=== PATIENT | female | born 1990 | race Caucasian/White ===

== ENCOUNTER → 2017-11-29 | Outpatient (CLI) | payer BC ==
[2017-11-29 20:28] LABS: EOS % 0.5 % (0.0-3.0); HEMATOCRIT 36.7 % (36.0-47.0); HEMOGLOBIN 12.1 g/dl (12.0-15.5); IMMATURE GRANULOCYTE % 0.3 % (0-3.0); LYMPH # 1.5 10^3/uL (1.5-6.5); LYMPH % 25.2 % (24.0-44.0); MEAN CORPUSCULAR HEMOGLOBIN 30.8 pg (27.0-33.0); MEAN CORPUSCULAR VOLUME 93.4 fl (80.0-96.0); MONO # 0.3 10^3/uL (0.0-0.8); MONO % 4.5 % (0.0-5.0); NEUTROPHILS # 4.1 10^3/uL (1.8-7.7); NEUTROPHILS % 69.5 % (36.0-66.0); PLATELET COUNT, AUTOMATED 157 10^3/uL (150-450); RED BLOOD COUNT 3.93 10^6/uL (4.00-5.40); RED CELL DISTRIBUTION WIDTH 11.9 % (11.5-14.5); WHITE BLOOD COUNT 5.8 10^3/uL (4.0-10.0)
[2017-11-29 22:55] LABS: CHLAMYDIA DNA AMPLIFICATION NEGATIVE (NEGATIVE); GC DNA AMPLIFICATION NEGATIVE (NEGATIVE)
[2017-12-01 11:12] LABS: RUBELLA IgG QUALITATIVE IMMUNE (IMMUNE)
[2017-12-01 11:33] LABS: HBsAg Prenatal NEGATIVE (NEGATIVE)
[2017-12-01 11:41] LABS: HEPATITIS C VIRUS ABY INDEX 0.1 INDEX (<0.8)
[2017-12-01 11:42] LABS: HIV 1&2 SCREEN CENTAUR NEGATIVE (NEGATIVE)
== END ==
LOC: M WUC 17:35
DX: Z34.81 Encounter for supervision of other normal pregnancy, first trimester (principal); Z3A.12 12 weeks gestation of pregnancy; Z36.89 Encounter for other specified antenatal screening
CPT/HCPCS: 86762

== ENCOUNTER → 2017-12-08 | Outpatient (CLI) | payer BC | LOC: M RAD 15:06 | DX: M51.26 Other intervertebral disc displacement, lumbar region (principal) | CPT/HCPCS: 72148 ==

== ENCOUNTER → 2018-09-14 | Outpatient (REF) | payer BC ==
[2018-09-14 15:13] LABS: CHLAMYDIA DNA AMPLIFICATION NEGATIVE (NEGATIVE); GC DNA AMPLIFICATION NEGATIVE (NEGATIVE)
== END ==
LOC: M LAB REF 12:57
PROVIDERS: ATTEND Advanced Practice Midwife
DX: Z11.3 Encounter for screening for infections with a predominantly sexual mode of transmission (principal)

== ENCOUNTER → 2018-09-19 | Outpatient (CLI) | payer BC ==
--- NOTE | 2018-09-20 04:55 | REP ---
Clinical: Pelvic pain. IUD positioning . Technique: Transabdominal pelvic ultrasound followed by transvaginal examination for better evaluation of the endometrium and adnexa with color Doppler evaluation of the ovaries. Findings: Bladder is unremarkable and measures 9.2 x 4.3 x 4.4 cm . Normal anteverted uterus measures 7.3 x 2.9 x 5.0 cm . The endometrial complex measures 3.0 mm thickness. No discrete uterine or endometrial abnormalities are appreciated. IUD in satisfactory central position. Bilateral ovaries are normal in appearance and vascularity without evidence for torsion. Right ovary measures 2.7 x 2.0 x 1.9 cm ; R I = 0.61 . Left ovary measures 2.6 x 1.8 x 1.9 cm ; R I = 0.45 . No pelvic fluid or adnexal mass lesion . Impression: 1. Normal pelvic ultrasound. 2. IUD in satisfactory position. Electronically Signed by Mario Britt MD 09/20/2018 04:46 A
== END ==
LOC: M RAD 12:37
PROVIDERS: ATTEND Advanced Practice Midwife
DX: R10.9 Unspecified abdominal pain (principal); Z30.431 Encounter for routine checking of intrauterine contraceptive device

== ENCOUNTER → 2018-11-16 | Outpatient (CLI) | payer BC ==
[2018-11-16 17:02] LABS: ALBUMIN 4.3 GM/DL (3.2-5.2); ALT/SGPT 20 U/L (12-78); BILIRUBIN,TOTAL 1.1 MG/DL (0.2-1.0); BLOOD UREA NITROGEN 9 MG/DL (7-18); CALCIUM LEVEL 9.2 MG/DL (8.5-10.1); CARBON DIOXIDE LEVEL 27 MEQ/L (21-32); CHLORIDE LEVEL 109 MEQ/L (98-107); CREATININE FOR GFR 0.76 MG/DL (0.55-1.30); FREE T4 0.68 NG/DL (0.76-1.46); GLOMERULAR FILTRATION RATE > 60.0 (>60); GLUCOSE, FASTING 86 MG/DL (70-100); HCG, SERUM QUANTITATIVE < 1.0 MIU/ML; POTASSIUM SERUM 4.1 MEQ/L (3.5-5.1); SODIUM LEVEL 142 MEQ/L (136-145); TOTAL PROTEIN 7.5 GM/DL (6.4-8.2)
[2018-11-16 17:08] LABS: BASO % 0.3 % (0.0-1.0); EOS % 0.6 % (0.0-3.0); HEMATOCRIT 40.1 % (36.0-47.0); HEMOGLOBIN 12.8 g/dl (12.0-15.5); LYMPH # 1.6 10^3/uL (1.5-6.5); LYMPH % 43.3 % (24.0-44.0); MEAN CORPUSCULAR HEMOGLOBIN 29.2 pg (27.0-33.0); MEAN CORPUSCULAR HGB CONC 31.9 g/dl (32.0-36.5); MEAN CORPUSCULAR VOLUME 91.3 fl (80.0-96.0); MONO # 0.2 10^3/uL (0.0-0.8); MONO % 6.7 % (0.0-5.0); NEUTROPHILS # 1.8 10^3/uL (1.8-7.7); NEUTROPHILS % 48.8 % (36.0-66.0); PLATELET COUNT, AUTOMATED 170 10^3/uL (150-450); RED BLOOD COUNT 4.39 10^6/uL (4.00-5.40); WHITE BLOOD COUNT 3.6 10^3/uL (4.0-10.0)
[2018-11-19 00:06] LABS: EBV VIRAL CAPSID AG IgM <36.0 U/mL (0.0-35.9); Lyme Disease IgG/IgM Antibodie <0.91 ISR (0.00-0.90); Lyme Disease IgM Ab Quantitati <0.80 index (0.00-0.79)
== END ==
LOC: M WUC 15:18
PROVIDERS: ATTEND Physician Assistant
DX: R53.83 Other fatigue (principal)

== ENCOUNTER → 2019-11-17 | Outpatient (CLI) | payer BC | LOC: M LABSMTC 10:30 | PROVIDERS: ATTEND Physical Medicine & Rehabilitation | DX: Z01.818 Encounter for other preprocedural examination (principal) ==

== ENCOUNTER → 2019-11-17 | Outpatient (CLI) | payer BC ==
[2019-11-17 12:13] LABS: PLATELET COUNT, AUTOMATED 151 10^3/uL (150-450)
[2019-11-17 12:22] LABS: INR 1.06; PARTIAL THROMBOPLASTIN TIME 28.7 SECONDS (25.0-38.4); PROTHROMBIN TIME 13.5 SECONDS (11.8-14.0)
[2019-11-17 13:02] LABS: HCG, SERUM QUALITATIVE NEGATIVE (NEGATIVE)
== END ==
LOC: M LAB 10:56
PROVIDERS: ATTEND Physician Assistant
DX: Z01.818 Encounter for other preprocedural examination (principal); Z11.59 Encounter for screening for other viral diseases

== ENCOUNTER → 2020-02-26 | Outpatient (CLI) | payer BC | LOC: M LABSMTC 13:23 | PROVIDERS: ATTEND Physical Medicine & Rehabilitation | DX: Z20.828 Contact with and (suspected) exposure to other viral communicable diseases (principal) ==

== ENCOUNTER → 2020-11-13 | Outpatient (CLI) | payer BC ==
--- NOTE | 2020-11-13 20:17 | REPVR ---
PROCEDURE INFORMATION: Exam: MR Lumbar Spine Without Contrast Exam date and time: 11/13/2020 4:48 PM Age: 30 years old Clinical indication: Low back pain; Additional info: Spondylosis TECHNIQUE: Imaging protocol: Multiplanar magnetic resonance images of the lumbar spine without intravenous contrast. COMPARISON: MRI-Spine, L.S. without con 12/08/2017 4:35 PM FINDINGS: Vertebrae: There is no fracture or listhesis. Marrow signal is within normal limits. Spinal cord: Normal signal. No cord compression. L1-L2: No significant disc disease. No significant spinal canal stenosis. No neural foraminal stenosis. L2-L3: No significant disc disease. No significant spinal canal stenosis. No neural foraminal stenosis. L3-L4: No significant disc disease. No significant spinal canal stenosis. No neural foraminal stenosis. L4-L5: There is shallow disc bulging. There is mild facet hypertrophy. No significant spinal canal stenosis. No neural foraminal stenosis. L5-S1: N there is shallow disc bulging. There is mild facet hypertrophy. No significant spinal canal stenosis. No neural foraminal stenosis. Soft tissues: Unremarkable. IMPRESSION: Mild degenerative disc disease and spondylosis. No canal or neural foraminal compromise. Electronically signed by: Ida Burgess On 11/13/2020 20:16:28 PM
--- NOTE | 2020-11-13 20:24 | REPVR ---
PROCEDURE INFORMATION: Exam: MR Pelvis Without Contrast, Sacrum Exam date and time: 11/13/2020 4:48 PM Age: 30 years old Clinical indication: Pelvic pain; Additional info: Spondylosis TECHNIQUE: Imaging protocol: Magnetic resonance images of the pelvis without intravenous contrast. Exam focused on the sacrum. COMPARISON: 1. US PELVIC NON-OB COMPLETE 09/19/2018 1:01 PM 2. MRI-Spine, L.S. without con 12/08/2017 4:35 PM FINDINGS: Intraperitoneal space: There is trace free pelvic fluid, likely within physiologic limits. Reproductive: There is a septated left adnexal cyst versus 2 closely opposed cysts measuring a total 4.3 x 2.7 cm. These would be better evaluated sonographically. Bones/joints: Unremarkable. No fracture. Soft tissues: Unremarkable. IMPRESSION: 1. No acute osseous abnormality or advanced degenerative change. 2. Complex left adnexal cyst versus 2 closely opposed cysts. Pelvic ultrasound is recommended for further evaluation. Electronically signed by: Ida Burgess On 11/13/2020 20:24:28 PM
== END ==
LOC: M RAD 16:42
PROVIDERS: ATTEND Physician Assistant Surgical
DX: M47.816 Spondylosis without myelopathy or radiculopathy, lumbar region (principal)

== ENCOUNTER → 2022-11-12 | Outpatient (REF) | payer BC | LOC: M LAB REF 12:05 | PROVIDERS: ATTEND Obstetrics & Gynecology | DX: R30.0 Dysuria (principal); O02.1 Missed abortion ==

== ENCOUNTER → 2022-12-19 | Outpatient (REF) | payer BC | LOC: M WUC 18:51 | PROVIDERS: ATTEND Student in an Organized Health Care Education/Training Program | DX: R30.0 Dysuria (principal) ==